=== PATIENT | male | born 1990 | race Hispanic/Latino ===

== ENCOUNTER 2022-08-02 13:23 | Emergency (ER) | payer OTHER ==
[~2022-08-02] VITALS: Ht 154.9 cm; Wt 70.7 kg
[2022-08-02] MEDS ORDERED: ONDA4TAB6 PO (13:59)
[2022-08-02] MEDS ORDERED: ONDANSETRON 4MG ORAL DISINTEGRATING TAB PO ONE (14:00)
[2022-08-02 14:21] VITALS: BP 133/82
== END 2022-08-02 14:45 | disposition home or self-care (01) ==
LOC: M ED 13:23
DX: R10.84 Generalized abdominal pain (principal); R11.0 Nausea